=== PATIENT | male | born 1965 | race Caucasian/White ===

== ENCOUNTER 2020-12-31 20:49 | Emergency (ER) | payer MEDICARE, OTHER ==
[2020-12-31 22:13] LABS: BASOPHIL 0.5 % (0-2); EOSINOPHIL 3.3 % (0-5); HCT 40.4 % (42.0-52.0); HGB 14.7 g/dl (13.2-18.0); LYMPHOCYTE 23.2 % (15-48); MCH 32.2 pg (25.0-31.0); MCHC 36.4 g/dL (32.0-36.0); MCV 88.6 fL (78.0-100.0); MONOCYTE 8.6 % (0-12); MPV 10.4 fL (6.0-9.5); NRBC 0; PLT 283 K/uL (150-400); RBC 4.56 M/uL (4.70-6.00); RDW 11.4 % (11.5-14.0); WBC 13.8 K/uL (4.0-10.5)
[2020-12-31 22:28] LABS: ALBUMIN 2.8 g/dL (3.4-5.0); BILIRUBIN - TOTAL 0.4 mg/dL (0.2-1.0); BUN/CREAT RATIO (CALC) 16.4 RATIO; CREATININE 0.61 mg/dL (0.67-1.17); GLOBULIN (CALCULATION) 4.3 g/dL; TOTAL PROTEIN 7.1 g/dL (6.4-8.2)
[2020-12-31 23:54] LABS: BILIRUBIN NEGATIVE (NEGATIVE); BLOOD 3+ Ery/uL (NEGATIVE); CLARITY CLOUDY (CLEAR); COLOR YELLOW (YELLOW); GLUCOSE (U) 3+ mg/dL (NORMAL); LEUKOCYTES 2+ Leu/uL (NEGATIVE); NITRITE NEGATIVE (NEGATIVE); PROTEIN 1+ mg/dL (NEGATIVE); SPECIFIC GRAVITY 1.025 (1.001-1.030); pH 6.5 (5.0-9.0)
[2020-12-31 23:58] LABS: MUCOUS TRACE; SPERM PRESENT
[2020-12-31 23:59] LABS: BACTERIA 3+; URINARY WBC TNTC
[2021-01-01] MEDS ORDERED: CIPRO500 MG PO (00:33)
== END 2021-01-01 01:22 | disposition home or self-care (01) ==
LOC: FER 20:49
PROVIDERS: Emergency Medicine
DX: N30.00 Acute cystitis without hematuria (principal); I10 Essential (primary) hypertension; E78.5 Hyperlipidemia, unspecified; E11.9 Type 2 diabetes mellitus without complications; K21.9 Gastro-esophageal reflux disease without esophagitis; F17.210 Nicotine dependence, cigarettes, uncomplicated; Z79.899 Other long term (current) drug therapy; Z79.4 Long term (current) use of insulin
CPT/HCPCS: 36415; 80053; 81001; 85025; 87076; 87088; 87186; J0696; J7030

== ENCOUNTER 2021-07-17 15:46 | Emergency (ER) | payer MEDICARE, OTHER ==
[~2021-07-17] VITALS: Ht 180.3 cm; Wt 81.6 kg
[~2021-07-17 15:46] MED LIST: CIPRO500 MG PO
[2021-07-17 16:13] LABS: BASOPHIL 0.7 % (0-2); EOSINOPHIL 2.5 % (0-5); HCT 45.5 % (42.0-52.0); HGB 16.1 g/dl (13.2-18.0); LYMPHOCYTE 30.4 % (15-48); MCH 31.8 pg (25.0-31.0); MCHC 35.4 g/dL (32.0-36.0); MCV 89.7 fL (78.0-100.0); MONOCYTE 8.1 % (0-12); MPV 11.1 fL (6.0-9.5); NEUTROPHIL 57.8 % (41-80); NRBC 0; PLT 230 K/uL (150-400); RBC 5.07 M/uL (4.70-6.00); RDW 12.3 % (11.5-14.0); WBC 8.9 K/uL (4.0-10.5)
[2021-07-17 16:55] LABS: ALBUMIN 3.8 g/dL (3.4-5.0); ALKALINE PHOSHATASE 82 U/L (46-116); ALT 42 U/L (16-63); AST 20 U/L (15-37); BILIRUBIN - TOTAL 0.7 mg/dL (0.2-1.0); BUN 19 mg/dL (7-18); BUN/CREAT RATIO (CALC) 27.5 RATIO; CHLORIDE 105 mmol/L (98-107); CO2 (BICARBONATE) 26 mmol/L (21-32); CREATININE 0.69 mg/dL (0.67-1.17); GLOBULIN (CALCULATION) 3.9 g/dL; GLUCOSE 258 mg/dL (74-106); LIPASE 137 U/L (73-393); POTASSIUM 4.5 mmol/L (3.5-5.1); TOTAL PROTEIN 7.7 g/dL (6.4-8.2)
[2021-07-17 16:56] LABS: ACETAMINOPHEN (TYLENOL) < 2.0 ug/mL (10.0-30.0)
[2021-07-17] MEDS ORDERED: LIPITOR80 MG PO (17:16)
[2021-07-17 17:42] LABS: CORONAVIRUS 2019 SARS-COV-2 NEGATIVE (NEGATIVE); INFLUENZA A NAA NEGATIVE (NEGATIVE)
== END 2021-07-17 17:55 | disposition home or self-care (01) ==
LOC: FER 15:46
PROVIDERS: Internal Medicine
DX: G45.9 Transient cerebral ischemic attack, unspecified (principal); G93.9 Disorder of brain, unspecified; E78.5 Hyperlipidemia, unspecified; E11.9 Type 2 diabetes mellitus without complications; F17.210 Nicotine dependence, cigarettes, uncomplicated; I10 Essential (primary) hypertension; Z79.4 Long term (current) use of insulin; Z20.822 Contact with and (suspected) exposure to COVID-19
CPT/HCPCS: 36415; 70450; 71045; 80053; 82140; 83690; 84145; 84443; 84484; 85025; 93005; G0480; U0002

== ENCOUNTER 2021-11-17 22:34 | Emergency (ER) | payer MEDICARE, OTHER ==
[~2021-11-17 22:34] MED LIST changes: +LIPITOR80 MG PO
[2021-11-18] MEDS ORDERED: LEVSIN-SL0.125 M1 SL (00:19)
== END 2021-11-18 00:29 | disposition home or self-care (01) ==
LOC: FER 22:34
DX: R13.10 Dysphagia, unspecified (principal); I10 Essential (primary) hypertension; E11.9 Type 2 diabetes mellitus without complications; Z87.891 Personal history of nicotine dependence; Z86.73 Personal history of transient ischemic attack (TIA), and cerebral infarction without residual deficits; Z79.02 Long term (current) use of antithrombotics/antiplatelets; Z79.82 Long term (current) use of aspirin; Z79.84 Long term (current) use of oral hypoglycemic drugs; Z79.4 Long term (current) use of insulin; Z79.899 Other long term (current) drug therapy
CPT/HCPCS: 70490; 71250; J1610

== ENCOUNTER 2022-06-07 10:29 | Emergency (ER) | payer MEDICARE, OTHER ==
[~2022-06-07 10:29] MED LIST changes: +LEVSIN-SL0.125 M1 SL
[2022-06-07 11:30] LABS: BASOPHIL 0.6 % (0-2); HCT 40.7 % (42.0-52.0); HGB 14.3 g/dl (13.2-18.0); LYMPHOCYTE 16.3 % (15-48); MCH 31.8 pg (25.0-31.0); MCHC 35.1 g/dL (32.0-36.0); MCV 90.6 fL (78.0-100.0); MONOCYTE 14.9 % (0-12); MPV 10.5 fL (6.0-9.5); NEUTROPHIL 57.5 % (41-80); NRBC 0; PLT 369 K/uL (150-400); RBC 4.49 M/uL (4.70-6.00); RDW 11.4 % (11.5-14.0); WBC 9.4 K/uL (4.0-10.5)
[2022-06-07 11:32] LABS: ALBUMIN 2.9 g/dL (3.4-5.0); BILIRUBIN - TOTAL 0.6 mg/dL (0.2-1.0); BUN/CREAT RATIO (CALC) 18.8 RATIO; CREATININE 0.48 mg/dL (0.67-1.17); POTASSIUM 3.7 mmol/L (3.5-5.1); TOTAL PROTEIN 6.9 g/dL (6.4-8.2)
[2022-06-07 11:52] LABS: BILIRUBIN NEGATIVE (NEGATIVE); BLOOD NEGATIVE Ery/uL (NEGATIVE); CLARITY CLEAR (CLEAR); COLOR YELLOW (YELLOW); GLUCOSE (U) 3+ mg/dL (NORMAL); LEUKOCYTES NEGATIVE Leu/uL (NEGATIVE); NITRITE NEGATIVE (NEGATIVE); PROTEIN NEGATIVE (NEGATIVE); SPECIFIC GRAVITY <=1.005 (1.001-1.030); pH 5.5 (5.0-9.0)
[2022-06-07 11:57] LABS: INFLUENZA A NAA NEGATIVE (NEGATIVE)
[2022-06-07 12:06] LABS: CORONAVIRUS 2019 SARS-COV-2 POSITIVE (NEGATIVE)
[2022-06-07] MEDS ORDERED: PAXLOVID 300-11 EACH PO (13:02)
[2022-06-07] MEDS ORDERED: CIPRO500 MG PO (13:02)
== END 2022-06-07 14:19 | disposition home or self-care (01) ==
LOC: FER 10:29
PROVIDERS: Emergency Medicine
DX: U07.1 COVID-19 (principal); N30.91 Cystitis, unspecified with hematuria; I10 Essential (primary) hypertension; E11.9 Type 2 diabetes mellitus without complications; Z28.310 Unvaccinated for COVID-19; Z79.4 Long term (current) use of insulin; Z86.73 Personal history of transient ischemic attack (TIA), and cerebral infarction without residual deficits; Z88.8 Allergy status to other drugs, medicaments and biological substances
CPT/HCPCS: 36415; 71045; 80053; 81003; 85025; J1885; J2270; J2405; J7030; U0002